=== PATIENT | male | born 1995 | race African-American/Black ===

== ENCOUNTER 2022-10-16 07:29 | Emergency (ER) | payer BC | END 2022-10-16 08:00 | disposition home or self-care (01) | LOC: VM.ED 07:29 | DX: S29.012A Strain of muscle and tendon of back wall of thorax, initial encounter (principal) | CPT/HCPCS: 99283 ==

== ENCOUNTER 2024-07-01 14:10 | Emergency (ER) | payer SELFPAY | END 2024-07-01 14:30 | disposition home or self-care (01) | LOC: VM.ED 14:10 | DX: R42 Dizziness and giddiness (principal) | CPT/HCPCS: 93005; 93010; 99284 ==